=== PATIENT | female | born 1955 | race Caucasian/White ===

== ENCOUNTER 2016-10-12 18:39 | Inpatient (IN) | payer MEDICAID ==
[~2016-10-12] VITALS: Ht 152.4 cm; Wt 99.8 kg
[2016-10-12 19:02] VITALS: BP 133/77
[2016-10-12 20:00] VITALS: BP 125/72
[2016-10-12 20:01] VITALS: BP 125/72
[2016-10-12] MEDS ORDERED: FERR-63 PO (21:03)
[2016-10-12] MEDS ORDERED: GLIP5TAB12 PO (21:03)
[2016-10-12] MEDS ORDERED: SIMV20TA6 PO (21:03)
[2016-10-12] MEDS ORDERED: ASPI-1159 PO (21:03)
[2016-10-12] MEDS ORDERED: GEMF600T3 PO (21:03)
[2016-10-12] MEDS ORDERED: LISI-604 PO (21:03)
[2016-10-12] MEDS ORDERED: CIPR-213 PO (21:03)
[2016-10-12] MEDS ORDERED: FURO20TA4 PO (21:03)
[2016-10-12 22:21] VITALS: BP 150/73
[2016-10-12] MEDS ORDERED: DEXTROSE 50% WATER 50ML SYRINGE IV PRN (23:15)
[2016-10-12] MEDS: ACETAMINOPHEN 325MG TABLET PO PRN (23:50)
[2016-10-13] VITALS (19 sets, daily range): BP systolic 100–148; BP diastolic 44–83
[2016-10-13] MEDS: SODIUM CHLORIDE 0.9% 1,000 ML IV SCH ×2 (00:24→15:33)
[2016-10-13 06:11] LABS: PROTHROMBIN TIME 10.2 sec
[2016-10-13] MEDS: GLIPIZIDE 5MG TABLET PO SCH ×2 (06:17→16:26)
[2016-10-13] MEDS: PANTOPRAZOLE 40MG DR TABLET PO SCH (06:17)
[2016-10-13] MEDS: BLOOD SUGAR DIAGNOSTIC STRIP TEST SCH ×4 (06:17→21:52)
[2016-10-13] MEDS: INSULIN LISPRO 100 UNITS/ML SUBCUT SCH ×4 (06:18→21:00)
[2016-10-13 06:43] LABS: BASOPHILS % 0.5 % (0.0-2.0); HEMOGLOBIN. 8.1 g/dL (12.0-16.0); LYMPHOCYTES % 35.1 % (20.0-50.0); MEAN CORPUSCULAR VOLUME 83.3 fL (81.0-99.0); MEAN PLATELET VOLUME 7.7 fl (7.4-10.4); MONOCYTES % 10.1 % (2.0-8.0); NEUTROPHILS % 49.3 % (40.0-76.0); PLATELET 147 x1000/uL (130-400); RED BLOOD CELL COUNT 2.89 mill/uL (4.2-5.4); RED CELL DISTRIBUTION WIDTH 14.8 % (11.6-14.6)
[2016-10-13] MEDS: ISOSORBIDE MONONITRATE 30MG TABLET SR 24HR PO SCH (08:56)
[2016-10-13] MEDS: FUROSEMIDE 20MG TABLET PO SCH (08:56)
[2016-10-13] MEDS: LISINOPRIL 20MG TABLET PO SCH (08:56)
[2016-10-13] MEDS: DOCUSATE SODIUM 100MG CAPSULE PO SCH ×2 (08:56→16:26)
[2016-10-13] MEDS ORDERED: NON FORMULARY PATIENT HOME MED EA PO SCH (09:00)
[2016-10-13 09:07] LABS: TOTAL IRON BINDING CAPACITY 239 ug/dL (250-450)
[2016-10-13] MEDS ORDERED: ALPRAZOLAM 0.25 MG TABLET PO PRN (13:00)
[2016-10-13] MEDS ORDERED: ACETAMINOPHEN 325MG TABLET PO PRN (13:00)
[2016-10-13] MEDS ORDERED: NITROGLYCERIN 0.4MG TABLET SL SL PRN (13:00)
[2016-10-13 18:57] LABS: GLUCOSE URINE NEGATIVE (NEGATIVE); KETONES URINE 1+ (NEGATIVE); LEUKOCYTE ESTERASE URINE 3+ (NEGATIVE); NITRITE URINE POSITIVE (NEGATIVE); OCCULT BLOOD URINE 3+ (NEGATIVE); PH URINE 7.5 (4.5-8.0); PROTEIN URINE 4+ (NEGATIVE); SPECIFIC GRAVITY URINE 1.014 (1.005-1.030)
[2016-10-13 18:58] LABS: CLARITY URINE CLOUDY (CLEAR)
[2016-10-13 18:59] LABS: COLOR URINE DARK YELLOW (YELLOW)
[2016-10-13] MEDS: ALLOPURINOL 300 MG TABLET PO SCH (20:26)
[2016-10-13] MEDS ORDERED: CHLORHEXIDINE GLUCONATE 4% EXTERNAL USE TOP SCH (21:00)
[2016-10-13] MEDS ORDERED: DIPHENHYDRAMINE 25MG CAPSULE PO PRN (21:00)
[2016-10-13] MEDS ORDERED: DOCUSATE SODIUM 100MG CAPSULE PO SCH (21:00)
[2016-10-13] MEDS ORDERED: BISACODYL 10MG SUPP PR PRN (21:00)
[2016-10-13] MEDS ORDERED: ASCORBIC ACID 500 MG TABLET PO SCH (21:00)
[2016-10-13] MEDS ORDERED: ATORVASTATIN CALCIUM 10MG TABLET PO SCH (21:00)
[2016-10-13] MEDS ORDERED: METHYLENE BLUE 50 MG/10 ML AMP IV PRN (21:45)
[2016-10-13] MEDS ORDERED: DEL NIDO ELECTROLYTE-S(PH 7.4) 1,000 ML IV PRN (21:45)
[2016-10-14] VITALS (25 sets, daily range): BP systolic 78–165; BP diastolic 30–91
[2016-10-14] MEDS: SODIUM CHLORIDE 0.9% 1,000 ML IV SCH (02:10)
[2016-10-14] MEDS: PANTOPRAZOLE 40MG DR TABLET PO SCH (05:39)
[2016-10-14] MEDS: GLIPIZIDE 5MG TABLET PO SCH (05:39)
[2016-10-14] MEDS: ALLOPURINOL 300 MG TABLET PO SCH (05:39)
[2016-10-14] MEDS: BLOOD SUGAR DIAGNOSTIC STRIP TEST SCH (05:45)
[2016-10-14] MEDS: INSULIN LISPRO 100 UNITS/ML SUBCUT SCH (05:46)
[2016-10-14] MEDS ORDERED: DEL NIDO ELECTROLYTE-S(PH 7.4) 1,000 ML IV PRN (06:00)
[2016-10-14 06:38] LABS: PROTHROMBIN TIME 10.3 sec
[2016-10-14 06:40] LABS: BASOPHILS % 0.6 % (0.0-2.0); EOSINOPHILS % 4.8 % (0.0-5.0); HEMATOCRIT. 30.3 % (36.0-48.0); HEMOGLOBIN. 10.3 g/dL (12.0-16.0); LYMPHOCYTES % 30.5 % (20.0-50.0); MEAN CORPUSCULAR VOLUME 82.6 fL (81.0-99.0); MEAN PLATELET VOLUME 7.5 fl (7.4-10.4); MONOCYTES % 9.6 % (2.0-8.0); NEUTROPHILS % 54.5 % (40.0-76.0); PLATELET 149 x1000/uL (130-400); RED BLOOD CELL COUNT 3.67 mill/uL (4.2-5.4); RED CELL DISTRIBUTION WIDTH 15.8 % (11.6-14.6)
[2016-10-14] MEDS: CHLORHEXIDINE GLUCONATE 4% EXTERNAL USE TOP SCH ×2 (07:36→09:00)
[2016-10-14] MEDS ORDERED: CEFAZOLIN 2,000 MG in DEXT 5% WATER 100 ML IV ONE (08:00)
[2016-10-14 08:11] LABS: CARBON DIOXIDE 25 mEq/L (21-32); CHLORIDE 110 mEq/L (98-107)
[2016-10-14] MEDS: ISOSORBIDE MONONITRATE 30MG TABLET SR 24HR PO SCH (09:00)
[2016-10-14] MEDS: DOCUSATE SODIUM 100MG CAPSULE PO SCH (09:00)
[2016-10-14] MEDS: LISINOPRIL 20MG TABLET PO SCH (09:00)
[2016-10-14] MEDS ORDERED: METHYLENE BLUE 50 MG/10 ML AMP IV ONE (09:00)
[2016-10-14] MEDS: FUROSEMIDE 20MG TABLET PO SCH (09:00)
[2016-10-14] MEDS ORDERED: THROMBIN (BOVINE) 5000 UNITS/VIAL TOP ONE ×2 (09:26→19:15)
[2016-10-14] MEDS ORDERED: GELATIN SPONGE,ABSORBABLE SZ 100 ONE (09:26)
[2016-10-14] MEDS ORDERED: BACITRACIN ZINC 15GM TUBE TOP ONE ×2 (09:26→18:33)
[2016-10-14] MEDS ORDERED: NORMAL SALINE 0.9% 10 ML SYR ONE (09:27)
[2016-10-14] MEDS ORDERED: BACITRACIN 50,000 UNITS/VIAL ONE (09:27)
[2016-10-14] MEDS ORDERED: HEPARIN 10,000 UNITS/ML VIAL ONE ×3 (09:32→11:59)
[2016-10-14] MEDS ORDERED: HEPARIN 1000 UNITS/ML 10ML ONE ×3 (10:10→17:04)
[2016-10-14] MEDS ORDERED: FENTANYL CITRATE/PF 50MCG/ML 2ML VIAL ONE (11:30)
[2016-10-14] MEDS ORDERED: LEVOFLOXACIN 500MG PREMIX 100 ML IV ONE (11:39)
[2016-10-14] MEDS ORDERED: ROCURONIUM BROMIDE 10MG/ML VIAL 5ML IV ONE (11:54)
[2016-10-14] MEDS ORDERED: MANNITOL 20% 500 ML IV ONE (11:58)
[2016-10-14] MEDS ORDERED: PHENYLEPHRINE HCL 10 MG/ML 1ML (IV VIAL) IV ONE ×3 (11:58→18:11)
[2016-10-14] MEDS ORDERED: AMINOCAPROIC ACID 250 MG/ML 20ML VIAL ONE (11:58)
[2016-10-14] MEDS ORDERED: CEFAZOLIN SODIUM 1000MG/VIAL ONE (11:58)
[2016-10-14] MEDS ORDERED: CALCIUM CHLORIDE 1GM/10ML SYR IV ONE (11:58)
[2016-10-14] MEDS ORDERED: SODIUM BICARBONATE 7.5% 0.9 MEQ/ML 50ML SYR IV ONE ×2 (11:59→18:11)
[2016-10-14] MEDS ORDERED: POTASSIUM CHLORIDE 40MEQ/20ML INJ IV ONE (12:00)
[2016-10-14] MEDS ORDERED: LIDOCAINE HCL 2% 5ML SYRINGE IV ONE (12:00)
[2016-10-14] MEDS ORDERED: MAGNESIUM SULFATE 5GM/10ML VIAL IV ONE ×2 (12:00→19:49)
[2016-10-14] MEDS ORDERED: NON FORMULARY PATIENT HOME MED EA XX SCH (12:00)
[2016-10-14] MEDS ORDERED: PROPOFOL 200MG/20ML VIAL IV ONE (12:48)
[2016-10-14] MEDS ORDERED: VASOPRESSIN 20 UNIT/ML 1ML ONE ×2 (12:57→19:38)
[2016-10-14] MEDS ORDERED: EPHEDRINE SULFATE 50MG/ML VIAL ONE (12:57)
[2016-10-14] MEDS ORDERED: ALBUMIN HUMAN 25GM/100ML (25%) IV ONE ×2 (13:00→19:10)
[2016-10-14] MEDS ORDERED: DOPAMINE 400MG PREMIX 250 ML IV ONE (18:51)
[2016-10-14] MEDS ORDERED: ALBUMIN HUMAN 12.5G/250ML (5%) IV ONE ×2 (19:08→22:30)
[2016-10-14 19:26] LABS: HEMATOCRIT 53.7 % (36.0-48.0)
[2016-10-14 19:27] LABS: HEMOGLOBIN 17.9 g/dL (12.0-16.0)
[2016-10-14] MEDS ORDERED: ALBUMIN HUMAN 25GM/500ML (5%) IV NR (19:30)
[2016-10-14] MEDS ORDERED: ONDANSETRON HCL 4MG/2ML VIAL IV PRN (20:30)
[2016-10-14] MEDS ORDERED: DOPAMINE 400MG PREMIX 250 ML IV SCH (20:30)
[2016-10-14] MEDS ORDERED: ACETAMINOPHEN 325MG TABLET PO PRN (20:30)
[2016-10-14] MEDS ORDERED: MAGNESIUM 1 G PREMIX 100 ML IV PRN (20:30)
[2016-10-14] MEDS ORDERED: SODIUM CHLORIDE 0.9% 500 ML IV PRN (20:30)
[2016-10-14] MEDS ORDERED: FAMOTIDINE 20MG/2ML VIAL IV SCH (20:30)
[2016-10-14] MEDS ORDERED: CALCIUM CHLORIDE 1,000 MG in DEXT 5% WATER 250 ML IV PRN (20:30)
[2016-10-14] MEDS: DEXT 5%/0.45% NACL 1000ML 1,000 ML IV SCH (20:45)
[2016-10-14 20:59] LABS: BG BASE EXCESS -8.6 mmol/L (-2.0-2.0); BG CARBOXYHEMOGLOBIN 0.2 % (0.5-1.5); BG DEOXYHEMOGLOBIN 3.1 % (0.0-5.0); BG FRACTION INSPIRED OXYGEN 100; BG HCO3 ACT 19.8 mmol/L (22.0-26.0); BG METHEMOGLOBIN 0.5 % (0.0-1.5); BG OXYGEN SATURATION 96.9 % (92.0-98.5); BG OXYHEMOGLOBIN 96.2 % (94.0-97.0); BG PCO2 53.8 mmHg (35.0-45.0); BG PH 7.183 (7.350-7.450); BG PO2 116.6 mmHg (75.0-100.0); BG PRESSURE SUPPORT 10; BG SAMPLE SITE A-LINE; BG TIDAL VOLUME(mL) 400 mL; BG TOTAL HEMOGLOBIN 11.2 g/dL (12.0-18.0); BG VENT MODE VENT - SIMV; BG VENT RATE 10 set
[2016-10-14] MEDS ORDERED: NOREPINEPHRINE 4 MG in DEXT 5% WATER 250 ML IV PRN (21:00)
[2016-10-14] MEDS ORDERED: SODIUM BICARBONATE 8.4% 1 MEQ/ML 50ML SYR IV ONE (21:09)
[2016-10-14 21:13] LABS: BASOPHILS % 0.2 % (0.0-2.0); HEMATOCRIT. 31.7 % (36.0-48.0); HEMOGLOBIN. 10.2 g/dL (12.0-16.0); LYMPHOCYTES % 10.1 % (20.0-50.0); MEAN CORPUSCULAR HEMOGLOBIN 27.2 pg (28.0-32.0); MEAN CORPUSCULAR VOLUME 84.3 fL (81.0-99.0); MEAN PLATELET VOLUME 7.6 fl (7.4-10.4); MONOCYTES % 11.3 % (2.0-8.0); NEUTROPHILS % 78.4 % (40.0-76.0); PLATELET 103 x1000/uL (130-400); RED BLOOD CELL COUNT 3.76 mill/uL (4.2-5.4); RED CELL DISTRIBUTION WIDTH 15.4 % (11.6-14.6)
[2016-10-14] MEDS ORDERED: SODIUM BICARBONATE 8.4% 1 MEQ/ML 50ML SYR IV NR ×2 (21:13→22:10)
[2016-10-14 21:15] LABS: INR 1.2; PARTIAL THROMBOPLASTIN TIME 29.9 sec (24.0-34.0); PROTHROMBIN TIME 12.4 sec
[2016-10-14] MEDS: ALBUMIN HUMAN 12.5G/250ML (5%) IV PRN ×2 (21:33→21:46)
[2016-10-14] MEDS ORDERED: ALBUMIN HUMAN 12.5G/250ML (5%) IV NR ×3 (21:34→22:22)
[2016-10-14] MEDS ORDERED: NOREPINEPHRINE 4 MG in DEXT 5% WATER 246 ML IV ONE (21:45)
[2016-10-14] MEDS ORDERED: INSULIN REGULAR 100 UNITS in SODIUM CHLORIDE 0.9% 100ML IV ONE (21:45)
[2016-10-14] MEDS ORDERED: PAPAVERINE HCL 180MG in SODIUM CHLORIDE 0.9% 24ML IV ONE (21:45)
[2016-10-14] MEDS ORDERED: NICARDIPINE 50 MG in NS 250 ML IV ONE (21:45)
[2016-10-14] MEDS ORDERED: EPINEPHRINE 4 MG in DEXT 5% WATER 246 ML IV ONE (21:45)
[2016-10-14 22:01] LABS: BG BASE EXCESS -7.3 mmol/L (-2.0-2.0); BG CARBOXYHEMOGLOBIN 0.3 % (0.5-1.5); BG DEOXYHEMOGLOBIN 2.1 % (0.0-5.0); BG FRACTION INSPIRED OXYGEN 100; BG HCO3 ACT 20.1 mmol/L (22.0-26.0); BG METHEMOGLOBIN 0.2 % (0.0-1.5); BG OXYGEN SATURATION 97.9 % (92.0-98.5); BG OXYHEMOGLOBIN 97.4 % (94.0-97.0); BG PCO2 49.5 mmHg (35.0-45.0); BG PH 7.227 (7.350-7.450); BG PO2 156.7 mmHg (75.0-100.0); BG SAMPLE SITE A-LINE; BG TIDAL VOLUME(mL) 400 mL; BG TOTAL HEMOGLOBIN 10.1 g/dL (12.0-18.0); BG VENT MODE VENT - SIMV; BG VENT RATE 14 set
[2016-10-14] MEDS ORDERED: CALCIUM CHLORIDE 5,000 MG in DEXT 5% WATER 500 ML IV NR (22:15)
[2016-10-14 22:49] LABS: BG BASE EXCESS -3.2 mmol/L (-2.0-2.0); BG CARBOXYHEMOGLOBIN 0.3 % (0.5-1.5); BG DEOXYHEMOGLOBIN 2.8 % (0.0-5.0); BG FRACTION INSPIRED OXYGEN 80; BG HCO3 ACT 23.5 mmol/L (22.0-26.0); BG METHEMOGLOBIN 0.6 % (0.0-1.5); BG OXYGEN SATURATION 97.2 % (92.0-98.5); BG OXYHEMOGLOBIN 96.3 % (94.0-97.0); BG PCO2 50.5 mmHg (35.0-45.0); BG PH 7.286 (7.350-7.450); BG PO2 128.6 mmHg (75.0-100.0); BG PRESSURE SUPPORT 10; BG SAMPLE SITE A-LINE; BG TIDAL VOLUME(mL) 400 mL; BG TOTAL HEMOGLOBIN 9.6 g/dL (12.0-18.0); BG VENT MODE VENT - SIMV; BG VENT RATE 14 set
[2016-10-14] MEDS: LEVOFLOXACIN 500MG PREMIX 100 ML IV SCH (23:09)
[2016-10-15] VITALS (89 sets, daily range): BP systolic 81–182; BP diastolic 38–79
[2016-10-15 00:05] LABS: BG BASE EXCESS -3.9 mmol/L (-2.0-2.0); BG CARBOXYHEMOGLOBIN 0.2 % (0.5-1.5); BG DEOXYHEMOGLOBIN 3.6 % (0.0-5.0); BG FRACTION INSPIRED OXYGEN 70; BG HCO3 ACT 22.6 mmol/L (22.0-26.0); BG METHEMOGLOBIN 0.7 % (0.0-1.5); BG OXYGEN SATURATION 96.4 % (92.0-98.5); BG OXYHEMOGLOBIN 95.5 % (94.0-97.0); BG PCO2 47.7 mmHg (35.0-45.0); BG PH 7.294 (7.350-7.450); BG PO2 111.6 mmHg (75.0-100.0); BG PRESSURE SUPPORT 10; BG SAMPLE SITE A-LINE; BG TIDAL VOLUME(mL) 450 mL; BG TOTAL HEMOGLOBIN 9.9 g/dL (12.0-18.0); BG VENT MODE VENT - SIMV; BG VENT RATE 14 set
[2016-10-15] MEDS: CEFAZOLIN 1000MG PREMIX 50 ML IV SCH ×3 (00:11→13:09)
[2016-10-15] MEDS ORDERED: CALCIUM CHLORIDE IV NR (00:30)
[2016-10-15] MEDS ORDERED: SODIUM CHLORIDE 0.9% IV NR (00:30)
[2016-10-15] MEDS ORDERED: FUROSEMIDE 40MG/4ML VIAL IVP ONE (00:30)
[2016-10-15] MEDS ORDERED: LORAZEPAM 2MG/ML CPJ IV PRN (01:00)
[2016-10-15] MEDS: INSULIN REGULAR (DRIP) 100 UNITS in SODIUM CHLORIDE 0.9% 99 ML IV PRN (03:15)
[2016-10-15] MEDS: MAGNESIUM/ALUMINUM HYDROXIDE/SIMETHICONE 30ML UDC NG SCH ×3 (04:00→09:43)
[2016-10-15 04:16] LABS: BG BASE EXCESS -0.5 mmol/L (-2.0-2.0); BG CARBOXYHEMOGLOBIN 0.2 % (0.5-1.5); BG FRACTION INSPIRED OXYGEN 35; BG METHEMOGLOBIN 0.3 % (0.0-1.5); BG OXYHEMOGLOBIN 94.5 % (94.0-97.0); BG PCO2 38.7 mmHg (35.0-45.0); BG PO2 79.1 mmHg (75.0-100.0); BG SAMPLE SITE A-LINE; BG TIDAL VOLUME(mL) 450 mL; BG VENT MODE VENT - A/C; BG VENT RATE 12 set
[2016-10-15 04:19] LABS: HEMATOCRIT. 24.2 % (36.0-48.0); HEMOGLOBIN. 8.5 g/dL (12.0-16.0); MEAN CORPUSCULAR HEMOGLOBIN 28.7 pg (28.0-32.0); MEAN PLATELET VOLUME 7.7 fl (7.4-10.4); PLATELET 66 x1000/uL (130-400); RED BLOOD CELL COUNT 2.95 mill/uL (4.2-5.4); RED CELL DISTRIBUTION WIDTH 14.9 % (11.6-14.6)
[2016-10-15 06:07] LABS: BG BASE EXCESS -2.7 mmol/L (-2.0-2.0); BG CARBOXYHEMOGLOBIN 0.3 % (0.5-1.5); BG DEOXYHEMOGLOBIN 6.8 % (0.0-5.0); BG FRACTION INSPIRED OXYGEN 35; BG METHEMOGLOBIN 0.1 % (0.0-1.5); BG OXYGEN SATURATION 93.2 % (92.0-98.5); BG OXYHEMOGLOBIN 92.8 % (94.0-97.0); BG PCO2 37.6 mmHg (35.0-45.0); BG PH 7.385 (7.350-7.450); BG PO2 74.4 mmHg (75.0-100.0); BG PRESSURE SUPPORT 10; BG SAMPLE SITE A-LINE; BG TOTAL HEMOGLOBIN 9.3 g/dL (12.0-18.0); BG VENT MODE VENT - CPAP
[2016-10-15 07:27] LABS: PLATELET ESTIMATE DECREASED
[2016-10-15] MEDS ORDERED: FUROSEMIDE 40MG/4ML VIAL IVP NR (08:00)
[2016-10-15] MEDS ORDERED: IPRATROPIUM/ALBUTEROL 0.5-3(2.5)MG/3ML NEB HHN SCH (08:00)
[2016-10-15] MEDS: MORPHINE SULFATE 2 MG/ML CPJ (NOT FOR IM USE) IV PRN ×3 (08:09→21:22)
[2016-10-15] MEDS: IPRATROPIUM/ALBUTEROL 0.5-3(2.5)MG/3ML NEB HHN SCH ×3 (08:23→20:55)
[2016-10-15] MEDS: ONDANSETRON HCL 4MG/2ML VIAL IV PRN ×3 (08:34→19:30)
[2016-10-15] MEDS ORDERED: FAMOTIDINE 20MG TABLET PO SCH (09:00)
[2016-10-15] MEDS: OXYCODONE HCL/ACETAMINOPHEN 5/325MG TABLET PO PRN ×2 (10:39→16:34)
[2016-10-15] MEDS ORDERED: BACITRACIN ZINC 15GM TUBE TOP SCH (11:30)
[2016-10-15] MEDS: PANTOPRAZOLE SODIUM 40 MG/VIAL IV SCH (12:19)
[2016-10-15] MEDS: DEXT 5%/0.45% NACL 1000ML 1,000 ML IV SCH (14:28)
[2016-10-15 16:25] LABS: HEMATOCRIT 31.9 % (36.0-48.0); HEMOGLOBIN 10.8 g/dL (12.0-16.0)
[2016-10-15] MEDS: BLOOD SUGAR DIAGNOSTIC STRIP TEST SCH ×3 (17:07→18:49)
[2016-10-15] MEDS ORDERED: ALBUMIN HUMAN 12.5G/250ML (5%) IV ONE (17:21)
[2016-10-15] MEDS ORDERED: ALPRAZOLAM 0.25 MG TABLET PO PRN (19:30)
[2016-10-15 20:53] LABS: CHLORIDE 109 mEq/L (98-107)
[2016-10-15 21:00] LABS: AMYLASE 149 IU/L (25-115); CARBON DIOXIDE 27 mEq/L (21-32)
[2016-10-15] MEDS ORDERED: ALBUMIN HUMAN 12.5G/250ML (5%) IV NR (21:15)
[2016-10-15] MEDS ORDERED: ALBUMIN HUMAN 25GM/100ML (25%) IV NR (21:15)
[2016-10-15] MEDS: DOCUSATE SODIUM 100MG CAPSULE PO SCH (21:37)
[2016-10-15] MEDS: DOPAMINE 400MG PREMIX 250 ML IV SCH (21:37)
[2016-10-15] MEDS: ATORVASTATIN CALCIUM 10MG TABLET PO SCH (21:37)
[2016-10-15] MEDS: LEVOFLOXACIN 500MG PREMIX 100 ML IV SCH (21:49)
[2016-10-16] VITALS (98 sets, daily range): BP systolic 87–147; BP diastolic 40–95
[2016-10-16] MEDS: BLOOD SUGAR DIAGNOSTIC STRIP TEST SCH ×11 (00:01→23:31)
[2016-10-16] MEDS: IPRATROPIUM/ALBUTEROL 0.5-3(2.5)MG/3ML NEB HHN SCH ×4 (02:00→20:48)
[2016-10-16] MEDS: OXYCODONE HCL/ACETAMINOPHEN 5/325MG TABLET PO PRN ×2 (04:18→11:22)
[2016-10-16 05:50] LABS: BASOPHILS % 0.2 % (0.0-2.0); EOSINOPHILS % 0.1 % (0.0-5.0); HEMOGLOBIN. 9.4 g/dL (12.0-16.0); LYMPHOCYTES % 10.3 % (20.0-50.0); MEAN CORPUSCULAR VOLUME 86.6 fL (81.0-99.0); MEAN PLATELET VOLUME 8.3 fl (7.4-10.4); MONOCYTES % 7.7 % (2.0-8.0); NEUTROPHILS % 81.7 % (40.0-76.0); RED BLOOD CELL COUNT 3.23 mill/uL (4.2-5.4); RED CELL DISTRIBUTION WIDTH 15.5 % (11.6-14.6)
[2016-10-16] MEDS: DEXT 5%/0.45% NACL 1000ML 1,000 ML IV SCH ×2 (05:50→22:31)
[2016-10-16 05:58] LABS: PLATELET 43 x1000/uL (130-400)
[2016-10-16] MEDS ORDERED: BACITRACIN ZINC 15GM TUBE TOP SCH (09:00)
[2016-10-16] MEDS: DOCUSATE SODIUM 100MG CAPSULE PO SCH ×2 (09:18→18:10)
[2016-10-16] MEDS: PANTOPRAZOLE SODIUM 40 MG/VIAL IV SCH (09:18)
[2016-10-16] MEDS: INSULIN REGULAR (DRIP) 100 UNITS in SODIUM CHLORIDE 0.9% 99 ML IV PRN (09:19)
[2016-10-16] MEDS ORDERED: PANTOPRAZOLE SODIUM 40 MG/VIAL IV SCH (11:15)
[2016-10-16] MEDS: ACETAMINOPHEN 325MG TABLET PO PRN (20:34)
[2016-10-16] MEDS: BACITRACIN ZINC 15GM TUBE TOP SCH (20:35)
[2016-10-16] MEDS: ATORVASTATIN CALCIUM 10MG TABLET PO SCH (20:36)
[2016-10-16] MEDS: LEVOFLOXACIN 500MG PREMIX 100 ML IV SCH (22:14)
[2016-10-17] VITALS (100 sets, daily range): BP systolic 69–134; BP diastolic 26–74
[2016-10-17] MEDS: INSULIN REGULAR (DRIP) 100 UNITS in SODIUM CHLORIDE 0.9% 99 ML IV PRN (01:45)
[2016-10-17] MEDS: IPRATROPIUM/ALBUTEROL 0.5-3(2.5)MG/3ML NEB HHN SCH ×4 (01:48→20:25)
[2016-10-17] MEDS: BLOOD SUGAR DIAGNOSTIC STRIP TEST SCH ×9 (02:00→20:39)
[2016-10-17] MEDS: OXYCODONE HCL/ACETAMINOPHEN 5/325MG TABLET PO PRN (03:35)
[2016-10-17] MEDS: ACETAMINOPHEN 325MG TABLET PO PRN ×2 (04:55→14:46)
[2016-10-17 06:12] LABS: BASOPHILS % 0.1 % (0.0-2.0); EOSINOPHILS % 0.2 % (0.0-5.0); HEMATOCRIT. 29.2 % (36.0-48.0); HEMOGLOBIN. 9.9 g/dL (12.0-16.0); MEAN CORPUSCULAR HEMOGLOBIN 28.8 pg (28.0-32.0); MEAN CORPUSCULAR VOLUME 85.4 fL (81.0-99.0); MEAN PLATELET VOLUME 8.6 fl (7.4-10.4); MONOCYTES % 7.1 % (2.0-8.0); NEUTROPHILS % 83.6 % (40.0-76.0); PLATELET 64 x1000/uL (130-400); RED BLOOD CELL COUNT 3.42 mill/uL (4.2-5.4); RED CELL DISTRIBUTION WIDTH 15.5 % (11.6-14.6)
[2016-10-17] MEDS: BACITRACIN ZINC 15GM TUBE TOP SCH ×2 (09:36→20:40)
[2016-10-17] MEDS: DOPAMINE 400MG PREMIX 250 ML IV SCH (09:36)
[2016-10-17] MEDS: PANTOPRAZOLE SODIUM 40 MG/VIAL IV SCH (09:36)
[2016-10-17] MEDS: DOCUSATE SODIUM 100MG CAPSULE PO SCH ×2 (09:37→18:16)
[2016-10-17] MEDS: BISACODYL 5MG TABLET PO PRN (09:37)
[2016-10-17] MEDS ORDERED: CEFAZOLIN 500 MG in DEXTROSE 5% WATER 50 ML IV SCH (13:15)
[2016-10-17] MEDS ORDERED: ANCEF XX SCH (13:30)
[2016-10-17] MEDS ORDERED: CEFAZOLIN 1000MG PREMIX 50 ML IV NR (14:00)
[2016-10-17] MEDS ORDERED: CEFAZOLIN 1000MG PREMIX 50 ML IV SCH (15:00)
[2016-10-17 15:32] LABS: CLARITY URINE CLEAR (CLEAR); COLOR URINE YELLOW (YELLOW); GLUCOSE URINE NEGATIVE (NEGATIVE); KETONES URINE NEGATIVE (NEGATIVE); LEUKOCYTE ESTERASE URINE TRACE (NEGATIVE); NITRITE URINE NEGATIVE (NEGATIVE); OCCULT BLOOD URINE TRACE (NEGATIVE); PROTEIN URINE 2+ (NEGATIVE); SPECIFIC GRAVITY URINE 1.018 (1.005-1.030); UROBILINOGEN URINE 0.2 E.U./dL (0.2-1.0)
[2016-10-17] MEDS ORDERED: DEXTROSE 50% WATER 50ML SYRINGE IV PRN (16:30)
[2016-10-17] MEDS: INSULIN LISPRO 100 UNITS/ML SUBCUT SCH ×2 (18:16→20:39)
[2016-10-17] MEDS: ATORVASTATIN CALCIUM 10MG TABLET PO SCH (20:39)
[2016-10-17] MEDS: LEVOFLOXACIN 500MG PREMIX 100 ML IV SCH (23:24)
[2016-10-18] VITALS (74 sets, daily range): BP systolic 82–130; BP diastolic 32–91
[2016-10-18] MEDS: IPRATROPIUM/ALBUTEROL 0.5-3(2.5)MG/3ML NEB HHN SCH ×7 (00:08→23:51)
[2016-10-18] MEDS: OXYCODONE HCL/ACETAMINOPHEN 5/325MG TABLET PO PRN ×5 (00:10→23:32)
[2016-10-18] MEDS ORDERED: CEFAZOLIN 500MG in DEXTROSE 5% WATER 50ML IV SCH (02:00)
[2016-10-18] MEDS: BLOOD SUGAR DIAGNOSTIC STRIP TEST SCH ×4 (07:50→21:30)
[2016-10-18] MEDS: INSULIN LISPRO 100 UNITS/ML SUBCUT SCH ×4 (08:20→21:35)
[2016-10-18 08:32] LABS: BASOPHILS % 0.2 % (0.0-2.0); EOSINOPHILS % 0.5 % (0.0-5.0); HEMATOCRIT. 29.5 % (36.0-48.0); HEMOGLOBIN. 9.7 g/dL (12.0-16.0); LYMPHOCYTES % 10.7 % (20.0-50.0); MEAN CORPUSCULAR HEMOGLOBIN 28.5 pg (28.0-32.0); MEAN CORPUSCULAR VOLUME 86.8 fL (81.0-99.0); MEAN PLATELET VOLUME 8.2 fl (7.4-10.4); MONOCYTES % 8.9 % (2.0-8.0); NEUTROPHILS % 79.7 % (40.0-76.0); PLATELET 75 x1000/uL (130-400); RED BLOOD CELL COUNT 3.39 mill/uL (4.2-5.4); RED CELL DISTRIBUTION WIDTH 15.5 % (11.6-14.6)
[2016-10-18] MEDS: PANTOPRAZOLE SODIUM 40 MG/VIAL IV SCH (09:30)
[2016-10-18] MEDS: DOPAMINE 400MG PREMIX 250 ML IV SCH (09:31)
[2016-10-18] MEDS: BISACODYL 5MG TABLET PO PRN (09:31)
[2016-10-18] MEDS: DOCUSATE SODIUM 100MG CAPSULE PO SCH ×2 (09:31→18:24)
[2016-10-18] MEDS: BACITRACIN ZINC 15GM TUBE TOP SCH ×2 (09:36→21:30)
[2016-10-18] MEDS: METOPROLOL TARTRATE 25MG TABLET PO SCH ×2 (11:00→21:00)
[2016-10-18] MEDS: CEFAZOLIN 1000MG PREMIX 50 ML IV SCH (16:58)
[2016-10-18] MEDS: ATORVASTATIN CALCIUM 10MG TABLET PO SCH (21:30)
[2016-10-19] VITALS (16 sets, daily range): BP systolic 96–133; BP diastolic 52–94
[2016-10-19] MEDS: CEFAZOLIN 1000MG PREMIX 50 ML IV SCH ×2 (02:11→13:00)
[2016-10-19] MEDS: IPRATROPIUM/ALBUTEROL 0.5-3(2.5)MG/3ML NEB HHN SCH ×5 (04:01→20:26)
[2016-10-19] MEDS: BLOOD SUGAR DIAGNOSTIC STRIP TEST SCH ×4 (07:10→21:16)
[2016-10-19] MEDS: INSULIN LISPRO 100 UNITS/ML SUBCUT SCH ×4 (07:20→21:00)
[2016-10-19] MEDS: OXYCODONE HCL/ACETAMINOPHEN 5/325MG TABLET PO PRN ×2 (07:33→10:41)
[2016-10-19] MEDS: METOPROLOL TARTRATE 25MG TABLET PO SCH ×2 (09:00→21:15)
[2016-10-19] MEDS: DOCUSATE SODIUM 100MG CAPSULE PO SCH ×2 (09:11→16:27)
[2016-10-19] MEDS: PANTOPRAZOLE SODIUM 40 MG/VIAL IV SCH (09:11)
[2016-10-19] MEDS: BACITRACIN ZINC 15GM TUBE TOP SCH ×2 (09:12→21:17)
[2016-10-19 16:27] LABS: BASOPHILS % 0.3 % (0.0-2.0); EOSINOPHILS % 1.9 % (0.0-5.0); HEMATOCRIT. 27.9 % (36.0-48.0); HEMOGLOBIN. 9.3 g/dL (12.0-16.0); LYMPHOCYTES % 14.8 % (20.0-50.0); MEAN CORPUSCULAR HEMOGLOBIN 29.2 pg (28.0-32.0); MEAN CORPUSCULAR VOLUME 87.2 fL (81.0-99.0); MEAN PLATELET VOLUME 7.7 fl (7.4-10.4); MONOCYTES % 10.1 % (2.0-8.0); NEUTROPHILS % 72.9 % (40.0-76.0); PLATELET 94 x1000/uL (130-400); RED CELL DISTRIBUTION WIDTH 15.6 % (11.6-14.6)
[2016-10-19 16:43] LABS: CARBON DIOXIDE 23 mEq/L (21-32); CHLORIDE 102 mEq/L (98-107)
[2016-10-19] MEDS: ATORVASTATIN CALCIUM 10MG TABLET PO SCH (21:14)
[2016-10-19] MEDS ORDERED: MORPHINE SULFATE 2 MG/ML CPJ (NOT FOR IM USE) IV PRN (21:45)
[2016-10-19] MEDS ORDERED: OXYCODONE HCL/ACETAMINOPHEN 5/325MG TABLET PO PRN (21:45)
[2016-10-19] MEDS ORDERED: LEVOFLOXACIN 500MG PREMIX 100 ML IV SCH (23:00)
[2016-10-20] VITALS (17 sets, daily range): BP systolic 90–150; BP diastolic 38–84
[2016-10-20] MEDS: IPRATROPIUM/ALBUTEROL 0.5-3(2.5)MG/3ML NEB HHN SCH ×6 (01:26→20:56)
[2016-10-20] MEDS: CEFAZOLIN 1000MG PREMIX 50 ML IV SCH ×2 (02:14→15:09)
[2016-10-20] MEDS: OXYCODONE HCL/ACETAMINOPHEN 5/325MG TABLET PO PRN ×3 (03:10→20:15)
[2016-10-20] MEDS: BLOOD SUGAR DIAGNOSTIC STRIP TEST SCH ×4 (05:59→21:18)
[2016-10-20 06:30] LABS: BASOPHILS % 0.2 % (0.0-2.0); EOSINOPHILS % 2.2 % (0.0-5.0); HEMATOCRIT. 26.3 % (36.0-48.0); HEMOGLOBIN. 8.9 g/dL (12.0-16.0); MEAN CORPUSCULAR HEMOGLOBIN 29.3 pg (28.0-32.0); MEAN CORPUSCULAR VOLUME 86.7 fL (81.0-99.0); MEAN PLATELET VOLUME 7.7 fl (7.4-10.4); MONOCYTES % 12.1 % (2.0-8.0); NEUTROPHILS % 73.5 % (40.0-76.0); PLATELET 92 x1000/uL (130-400); RED BLOOD CELL COUNT 3.03 mill/uL (4.2-5.4)
[2016-10-20] MEDS: INSULIN LISPRO 100 UNITS/ML SUBCUT SCH ×4 (07:20→21:00)
[2016-10-20] MEDS: METOPROLOL TARTRATE 25MG TABLET PO SCH ×2 (08:15→21:17)
[2016-10-20] MEDS: PANTOPRAZOLE SODIUM 40 MG/VIAL IV SCH (08:15)
[2016-10-20] MEDS: DOCUSATE SODIUM 100MG CAPSULE PO SCH ×2 (08:15→17:25)
[2016-10-20] MEDS: BACITRACIN ZINC 15GM TUBE TOP SCH ×2 (08:16→21:20)
[2016-10-20] MEDS ORDERED: POTASSIUM CHLORIDE 20MEQ TABLET SR PO SCH (10:45)
[2016-10-20] MEDS: ASPIRIN 81MG EC TABLET PO SCH (11:00)
[2016-10-20] MEDS: FUROSEMIDE 20MG/2ML VIAL IVP SCH (11:01)
[2016-10-20] MEDS: ATORVASTATIN CALCIUM 10MG TABLET PO SCH (20:12)
[2016-10-21] VITALS (11 sets, daily range): BP systolic 96–131; BP diastolic 47–76
[2016-10-21] MEDS: IPRATROPIUM/ALBUTEROL 0.5-3(2.5)MG/3ML NEB HHN SCH ×5 (00:50→17:14)
[2016-10-21] MEDS: CEFAZOLIN 1000MG PREMIX 50 ML IV SCH (01:28)
[2016-10-21] MEDS: BLOOD SUGAR DIAGNOSTIC STRIP TEST SCH ×3 (06:00→17:19)
[2016-10-21 07:09] LABS: BASOPHILS % 0.4 % (0.0-2.0); EOSINOPHILS % 2.7 % (0.0-5.0); HEMATOCRIT. 26.8 % (36.0-48.0); MEAN CORPUSCULAR HEMOGLOBIN 28.9 pg (28.0-32.0); MEAN CORPUSCULAR VOLUME 86.5 fL (81.0-99.0); MEAN PLATELET VOLUME 7.3 fl (7.4-10.4); MONOCYTES % 13.2 % (2.0-8.0); NEUTROPHILS % 62.7 % (40.0-76.0); PLATELET 95 x1000/uL (130-400)
[2016-10-21] MEDS: INSULIN LISPRO 100 UNITS/ML SUBCUT SCH ×2 (07:20→12:10)
[2016-10-21] MEDS: ASPIRIN 81MG EC TABLET PO SCH (08:07)
[2016-10-21] MEDS: FUROSEMIDE 20MG/2ML VIAL IVP SCH (08:08)
[2016-10-21] MEDS: METOPROLOL TARTRATE 25MG TABLET PO SCH (08:08)
[2016-10-21] MEDS: DOCUSATE SODIUM 100MG CAPSULE PO SCH ×2 (08:08→17:20)
[2016-10-21] MEDS: OXYCODONE HCL/ACETAMINOPHEN 5/325MG TABLET PO PRN (08:10)
[2016-10-21] MEDS ORDERED: FAMOTIDINE 20MG TABLET PO SCH (09:00)
[2016-10-21] MEDS ORDERED: CEFAZOLIN 1000MG PREMIX 50 ML IV SCH (16:00)
[2016-10-21] MEDS ORDERED: LEVOFLOXACIN 500MG TABLET PO SCH (17:00)
== END 2016-10-21 18:50 | disposition home health service (06) | DRG 166 ==
LOC: 3WST 18:39 → CVICU 10-14 16:37 → 3WST 10-19 01:37
PROVIDERS: ADMIT Internal Medicine; ATTEND Thoracic Surgery (Cardiothoracic Vascular Surgery)
PROC: 5A1935Z Respiratory Ventilation, Less than 24 Consecutive Hours (ICD-10-PCS; 2016-10-14)
PROC: 021209W Bypass Coronary Artery, Three Arteries from Aorta with Autologous Venous Tissue, Open Approach (ICD-10-PCS; 2016-10-14)
PROC: 5A1221Z Performance of Cardiac Output, Continuous (ICD-10-PCS; 2016-10-14)
PROC: 06BQ0ZZ Excision of Left Saphenous Vein, Open Approach (ICD-10-PCS; 2016-10-14)
PROC: 0W9B30Z Drainage of Left Pleural Cavity with Drainage Device, Percutaneous Approach (ICD-10-PCS; 2016-10-14)
PROC: B246ZZ4 Ultrasonography of Right and Left Heart, Transesophageal (ICD-10-PCS; 2016-10-14)
PROC: 02100Z9 Bypass Coronary Artery, One Artery from Left Internal Mammary, Open Approach (ICD-10-PCS; principal; 2016-10-14 11:30)
PROC: 30233N1 Transfusion of Nonautologous Red Blood Cells into Peripheral Vein, Percutaneous Approach (ICD-10-PCS; 2016-10-15)
DX: I25.10 Atherosclerotic heart disease of native coronary artery without angina pectoris (principal); N17.0 Acute kidney failure with tubular necrosis; I13.2 Hypertensive heart and chronic kidney disease with heart failure and with stage 5 chronic kidney disease, or end stage renal disease; Z68.41 Body mass index [BMI] 40.0-44.9, adult; E11.22 Type 2 diabetes mellitus with diabetic chronic kidney disease; D69.6 Thrombocytopenia, unspecified; N18.5 Chronic kidney disease, stage 5; E44.1 Mild protein-calorie malnutrition; N39.0 Urinary tract infection, site not specified; R00.0 Tachycardia, unspecified; I50.9 Heart failure, unspecified; E66.01 Morbid (severe) obesity due to excess calories; D64.9 Anemia, unspecified; N18.9 Chronic kidney disease, unspecified; E78.5 Hyperlipidemia, unspecified; N92.0 Excessive and frequent menstruation with regular cycle; Z82.49 Family history of ischemic heart disease and other diseases of the circulatory system; Z95.1 Presence of aortocoronary bypass graft; I25.2 Old myocardial infarction; Z90.49 Acquired absence of other specified parts of digestive tract
CPT/HCPCS: 36415; 36600; 71010; 80048; 80053; 80061; 81001; 82150; 82375; 82805; 82962; 83036; 83540; 83550; 83690; 83735; 84132; 85014; 85018; 85025; 85347; 85520; 85610; 85730; 86850; 86900; 86920; 87070; 87086; 93005; 93306; 93880; 94002; 94640; 97110; 97116; 97162; 97530; A4216; C1729; C1751; C9113; J0171; J0690; J1265; J1644; J1815; J1940; J1956; J2270; J2370; J2405; J2440; J2704; J3010; J3475; J3480; J3490; J7030; J7040; J7050; J7060; J7620; L3908; P9016; P9041; P9047; Q9968

== ENCOUNTER 2016-11-28 09:36 | Inpatient (IN) | payer MEDICAID ==
[~2016-11-28] VITALS: Ht 157.5 cm; Wt 85.7 kg
[~2016-11-28 09:36] MED LIST: ASPI-1159 PO; FERR-63 PO; GEMF600T3 PO; GLIP5TAB12 PO
[2016-11-28] MEDS ORDERED: ACET1TAB12 PO (10:21)
[2016-11-28] MEDS ORDERED: ISOS30TA6 PO (10:33)
[2016-11-28] MEDS ORDERED: FURO40TA5 PO (10:33)
[2016-11-28] MEDS ORDERED: ASPI-1159 PO (10:33)
[2016-11-28] MEDS ORDERED: METO25TA6 PO (10:33)
[2016-11-28] MEDS ORDERED: GLIP5TAB12 PO (10:33)
[2016-11-28] MEDS ORDERED: LISI10TA5 PO (10:33)
[2016-11-28] MEDS ORDERED: ATOR10TA69 PO (10:33)
[2016-11-28 12:00] LABS: CLARITY URINE CLOUDY (CLEAR); COLOR URINE YELLOW (YELLOW); GLUCOSE URINE NEGATIVE (NEGATIVE); KETONES URINE NEGATIVE (NEGATIVE); LEUKOCYTE ESTERASE URINE 2+ (NEGATIVE); NITRITE URINE POSITIVE (NEGATIVE); OCCULT BLOOD URINE 2+ (NEGATIVE); PH URINE 5.5 (4.5-8.0); PROTEIN URINE 3+ (NEGATIVE); SPECIFIC GRAVITY URINE 1.014 (1.005-1.030); UROBILINOGEN URINE 0.2 E.U./dL (0.2-1.0)
[2016-11-28 12:04] LABS: BASOPHILS % 0.4 % (0.0-2.0); EOSINOPHILS % 3.7 % (0.0-5.0); HEMOGLOBIN. 9.8 g/dL (12.0-16.0); LYMPHOCYTES % 42.3 % (20.0-50.0); MEAN CORPUSCULAR HEMOGLOBIN 27.9 pg (28.0-32.0); MEAN CORPUSCULAR VOLUME 85.5 fL (81.0-99.0); MEAN PLATELET VOLUME 7.2 fl (7.4-10.4); NEUTROPHILS % 45.6 % (40.0-76.0); PLATELET 185 x1000/uL (130-400); RED BLOOD CELL COUNT 3.51 mill/uL (4.2-5.4); RED CELL DISTRIBUTION WIDTH 15.7 % (11.6-14.6)
[2016-11-28 12:07] LABS: PROTHROMBIN TIME 10.1 sec (9.4-11.6)
[2016-11-28 12:16] LABS: CARBON DIOXIDE 25 mEq/L (21-32); CHLORIDE 113 mEq/L (98-107); TROPONIN I < 0.02 ng/mL (0.00-0.04)
[2016-11-28 12:35] LABS: *AMPHETAMINES SCREEN URINE NEGATIVE (NEGATIVE); *BARBITURATES SCREEN URINE NEGATIVE (NEGATIVE); *BENZODIAZEPINES SCREEN URINE NEGATIVE (NEGATIVE); *COCAINE SCREEN URINE NEGATIVE (NEGATIVE); CANNABINOID URINE SCREEN NEGATIVE (NEGATIVE); METHADONE URINE SCREEN NEGATIVE (NEGATIVE); OPIATES URINE SCREEN NEGATIVE (NEGATIVE); PHENCYCLIDINE URINE SCREEN NEGATIVE (NEGATIVE)
[2016-11-28] MEDS ORDERED: CEFTRIAXONE 1 G PREMIX 50 ML IV ONE (16:30)
[2016-11-28 20:00] VITALS: BP 165/63
[2016-11-28 21:00] VITALS: BP 165/63
[2016-11-29] VITALS: BP 122/54
[2016-11-29] MEDS ORDERED: CLONIDINE 0.1MG TABLET PO PRN (01:15)
[2016-11-29] MEDS ORDERED: DEXTROSE 50% WATER 50ML SYRINGE IV PRN (01:15)
[2016-11-29] MEDS ORDERED: PIPERACILLIN/TAZOBACTAM 3.375GM/50ML PREMIX IV SCH (03:00)
[2016-11-29] MEDS: PIPERACILLIN/TAZ 3.375G PREMIX 50 ML IV SCH ×4 (03:31→20:06)
[2016-11-29 04:00] VITALS: BP 116/55
[2016-11-29 05:18] LABS: BASOPHILS % 0.5 % (0.0-2.0); EOSINOPHILS % 5.3 % (0.0-5.0); HEMATOCRIT. 27.3 % (36.0-48.0); LYMPHOCYTES % 34.1 % (20.0-50.0); MEAN CORPUSCULAR VOLUME 85.3 fL (81.0-99.0); MEAN PLATELET VOLUME 7.6 fl (7.4-10.4); MONOCYTES % 8.2 % (2.0-8.0); NEUTROPHILS % 51.9 % (40.0-76.0); PLATELET 155 x1000/uL (130-400); RED CELL DISTRIBUTION WIDTH 15.7 % (11.6-14.6)
[2016-11-29] MEDS: BLOOD SUGAR DIAGNOSTIC STRIP TEST SCH ×5 (06:08→21:29)
[2016-11-29 07:53] VITALS: BP 126/93
[2016-11-29] MEDS: INSULIN LISPRO 100 UNITS/ML SUBCUT SCH ×4 (08:10→21:26)
[2016-11-29] MEDS: HYDROCODONE/ACETAMINOPHEN 5/325MG TABLET PO PRN ×2 (08:34→12:52)
[2016-11-29] MEDS: ENOXAPARIN 30MG/0.3ML SYR SUBCUT SCH ×2 (08:35→20:07)
[2016-11-29] MEDS ORDERED: ENOXAPARIN 40MG/0.4ML SYR SUBCUT SCH (09:00)
[2016-11-29 11:25] VITALS: BP 127/52
[2016-11-29] MEDS: LISINOPRIL 5MG TABLET PO SCH ×2 (12:52→21:25)
[2016-11-29 15:41] VITALS: BP 142/58
[2016-11-29 20:00] VITALS: BP 140/62
[2016-11-29] MEDS: METOPROLOL TARTRATE 25MG TABLET PO SCH (20:07)
[2016-11-30] VITALS: BP 127/60
[2016-11-30] MEDS: PIPERACILLIN/TAZ 3.375G PREMIX 50 ML IV SCH ×2 (02:19→09:40)
[2016-11-30 04:00] VITALS: BP 131/57
[2016-11-30] MEDS: BLOOD SUGAR DIAGNOSTIC STRIP TEST SCH ×2 (05:52→13:30)
[2016-11-30 06:25] LABS: BASOPHILS % 0.4 % (0.0-2.0); EOSINOPHILS % 4.9 % (0.0-5.0); HEMATOCRIT. 26.8 % (36.0-48.0); HEMOGLOBIN. 8.9 g/dL (12.0-16.0); LYMPHOCYTES % 31.7 % (20.0-50.0); MEAN CORPUSCULAR HEMOGLOBIN 28.3 pg (28.0-32.0); MEAN CORPUSCULAR VOLUME 85.2 fL (81.0-99.0); MEAN PLATELET VOLUME 7.8 fl (7.4-10.4); MONOCYTES % 7.5 % (2.0-8.0); NEUTROPHILS % 55.5 % (40.0-76.0); PLATELET 145 x1000/uL (130-400); RED BLOOD CELL COUNT 3.15 mill/uL (4.2-5.4); RED CELL DISTRIBUTION WIDTH 15.6 % (11.6-14.6)
[2016-11-30 06:53] LABS: CARBON DIOXIDE 23 mEq/L (21-32); CHLORIDE 109 mEq/L (98-107); CREATINE KINASE 27 IU/L (26-192); CREATINE KINASE MB FRACTION 0.8 ng/mL (0.5-3.6); HDL CHOLESTEROL 35 mg/dL (40-59); LDL CHOLESTEROL 84 mg/dL (5-100); TROPONIN I < 0.02 ng/mL (0.00-0.04)
[2016-11-30 08:00] VITALS: BP 134/70
[2016-11-30] MEDS: INSULIN LISPRO 100 UNITS/ML SUBCUT SCH ×2 (08:10→13:10)
[2016-11-30] MEDS: METOPROLOL TARTRATE 25MG TABLET PO SCH (09:40)
[2016-11-30] MEDS: LISINOPRIL 5MG TABLET PO SCH (09:40)
[2016-11-30] MEDS: ENOXAPARIN 30MG/0.3ML SYR SUBCUT SCH (09:41)
[2016-11-30 11:55] VITALS: BP 120/60
[2016-11-30 13:43] VITALS: BP 147/63
[2016-11-30 16:00] VITALS: BP 141/63
== END 2016-11-30 16:15 | disposition home health service (06) | DRG 721 ==
LOC: ER 09:36 → 7WST 16:14 → MERGE 16:14 → EDBEDREQSVC 16:19 → EDBEDREQ 16:19 → ENRESERV 16:21
PROVIDERS: ADMIT Family Medicine; ATTEND Family Medicine
DX: T81.4XXA Infection following a procedure, initial encounter (principal); E11.22 Type 2 diabetes mellitus with diabetic chronic kidney disease; I13.10 Hypertensive heart and chronic kidney disease without heart failure, with stage 1 through stage 4 chronic kidney disease, or unspecified chronic kidney disease; E78.00 Pure hypercholesterolemia, unspecified; D63.1 Anemia in chronic kidney disease; I25.10 Atherosclerotic heart disease of native coronary artery without angina pectoris; J98.11 Atelectasis; N18.9 Chronic kidney disease, unspecified; Z95.1 Presence of aortocoronary bypass graft; Z90.49 Acquired absence of other specified parts of digestive tract; Z82.49 Family history of ischemic heart disease and other diseases of the circulatory system; Y83.8 Other surgical procedures as the cause of abnormal reaction of the patient, or of later complication, without mention of misadventure at the time of the procedure; Y92.89 Other specified places as the place of occurrence of the external cause
CPT/HCPCS: 36415; 71010; 71250; 80048; 80053; 80061; 80305; 81001; 82550; 82553; 82962; 83036; 83735; 83880; 84443; 84484; 85025; 85610; 85651; 87040; 87077; 87086; 87186; 87493; 93005; 93970; 99285; J0696; J1650; J1815; J2543; J7040